=== PATIENT | female | born 1985 | race African-American/Black ===

== ENCOUNTER 2018-05-16 18:17 | Emergency (ER) | payer OTHER ==
[~2018-05-16] VITALS: Ht 167.6 cm; Wt 94.5 kg
[2018-05-16] MEDS ORDERED: PROZ20CA11 PO (18:23)
[2018-05-16] MEDS ORDERED: LIDOCAINE 2% MDV 20 ML VIAL SC ONE (19:15)
[2018-05-16 20:04] VITALS: BP 122/82
== END 2018-05-16 20:06 | disposition home or self-care (01) ==
LOC: M ED 18:17
DX: S01.81XA Laceration without foreign body of other part of head, initial encounter (principal); S01.511A Laceration without foreign body of lip, initial encounter; W00.9XXA Unspecified fall due to ice and snow, initial encounter; Y92.099 Unspecified place in other non-institutional residence as the place of occurrence of the external cause; Y93.9 Activity, unspecified; Y99.9 Unspecified external cause status; Z77.098 Contact with and (suspected) exposure to other hazardous, chiefly nonmedicinal, chemicals; Z79.899 Other long term (current) drug therapy; Z88.8 Allergy status to other drugs, medicaments and biological substances; Z91.89 Other specified personal risk factors, not elsewhere classified

== ENCOUNTER 2019-06-09 13:57 | Emergency (ER) | payer OTHER ==
[~2019-06-09] VITALS: Ht 167.6 cm; Wt 97.9 kg
[~2019-06-09 13:57] MED LIST: PROZ20CA11 PO
[2019-06-09 16:18] LABS: BASO % 0.5 % (0.0-1.0); EOS # 0.1 10^3/uL (0.0-0.5); EOS % 0.8 % (0.0-3.0); HEMATOCRIT 38.2 % (36.0-47.0); HEMOGLOBIN 12.6 g/dl (12.0-15.5); LYMPH # 3.7 10^3/uL (1.5-5.0); LYMPH % 47.6 % (24.0-44.0); MEAN CORPUSCULAR HEMOGLOBIN 29.4 pg (27.0-33.0); MEAN CORPUSCULAR VOLUME 89.3 fl (80.0-96.0); MONO # 0.5 10^3/uL (0.0-0.8); MONO % 6.8 % (0.0-5.0); NEUTROPHILS # 3.4 10^3/uL (1.5-8.5); PLATELET COUNT, AUTOMATED 374 10^3/uL (150-450); RED BLOOD COUNT 4.28 10^6/uL (4.00-5.40); WHITE BLOOD COUNT 7.8 10^3/uL (4.0-10.0)
[2019-06-09 16:41] LABS: HCG, SERUM QUALITATIVE NEGATIVE (NEGATIVE)
[2019-06-09 16:42] LABS: ALBUMIN 3.6 GM/DL (3.2-5.2); ALT/SGPT 16 U/L (12-78); AMYLASE 50 U/L (25-115); BILIRUBIN,DIRECT 0.1 MG/DL (0.0-0.2); BILIRUBIN,TOTAL 0.2 MG/DL (0.2-1.0); BLOOD UREA NITROGEN 9 MG/DL (7-18); CALCIUM LEVEL 9.1 MG/DL (8.5-10.1); CARBON DIOXIDE LEVEL 28 MEQ/L (21-32); CHLORIDE LEVEL 106 MEQ/L (98-107); CREATININE FOR GFR 0.75 MG/DL (0.55-1.30); GLOMERULAR FILTRATION RATE > 60.0 (>60); GLUCOSE, FASTING 89 MG/DL (70-100); POTASSIUM SERUM 4.5 MEQ/L (3.5-5.1); SODIUM LEVEL 138 MEQ/L (136-145); TOTAL PROTEIN 7.4 GM/DL (6.4-8.2)
[2019-06-09] MEDS ORDERED: SIMETHICONE 80 MG CHEW TAB PO ONE (17:15)
[2019-06-09] MEDS ORDERED: ACETAMINOPHEN TAB 650MG DOSE (2X325MG) PO ONE (17:15)
--- NOTE | 2019-06-09 18:10 | REPVR ---
PROCEDURE INFORMATION: Exam: US Abdomen Limited, Right Upper Quadrant Exam date and time: 06/09/2019 5:42 PM Age: 34 years old Clinical indication: Abdominal pain; Additional info: Biliary colic TECHNIQUE: Imaging protocol: Real-time ultrasound of the abdomen with image documentation. Examination was focused on the right upper quadrant. COMPARISON: No relevant prior studies available. FINDINGS: Pancreas is only partially imaged secondary to acoustic shadowing from bowel. Distal pancreatic body and pancreatic tail are not visualized. No obvious mass involving the pancreatic head. Liver demonstrates suggestion of a mass in the left lobe measuring 6.3 x 7.8 x 5.9 cm. Gallbladder is anechoic. No stone, mural edema or pericholecystic fluid. Common bile duct measures 2-3 mm in diameter. Right kidney measures 14 cm in long axis. Right kidney appears normal. No free fluid. IMPRESSION: No evidence of gallstones, cholecystitis or biliary obstruction. Concern for an ill-defined left hepatic mass roughly 6 x 8 x 6 cm in size Electronically signed by: Randy Zhang On 06/09/2019 18:09:59 PM
[2019-06-09] MEDS ORDERED: ISOVUE-370 76% 100ML VIAL (Q9967) As Ordered ONE (18:59)
[2019-06-09 19:29] VITALS: BP 122/80
--- NOTE | 2019-06-09 19:50 | REPVR ---
PROCEDURE INFORMATION: Exam: CT Abdomen Without And With Contrast, Liver Exam date and time: 06/09/2019 7:30 PM Age: 34 years old Clinical indication: Abnormal findings; Abnormal radiologic finding of the abdomen; Radiologic exam and body structure: US; Mass, lump, or swelling; Ruq; Additional info: Liver mass on US, ruq pain TECHNIQUE: Imaging protocol: Computed tomography images of the abdomen without and with intravenous contrast. Radiation optimization: All CT scans at this facility use at least one of these dose optimization techniques: automated exposure control; mA and/or kV adjustment per patient size (includes targeted exams where dose is matched to clinical indication); or iterative reconstruction. Contrast material: ISOVUE 370; Contrast volume: 100 ml; Contrast route: IV; COMPARISON: US Abdomen 06/09/2019 5:32 PM FINDINGS: Lungs: No suspicious mass or airspace process in the visualized lung bases. Liver: Left hepatic lobe demonstrates a 7 x 7 cm lesion that is hyperintense to hepatic parenchyma on the arterial phase and portal venous phase, with an area of central hypointensity suggesting a central scar. Delayed images show relative hypointensity compared to normal hepatic parenchyma.. Gallbladder and bile ducts: Gallbladder is present and shows no evidence of gallstone. Pancreas: Pancreas shows no obvious mass or adjacent fluid. Spleen: Spleen shows no obvious focal deformity. Adrenals: Adrenal glands are normal in appearance. Kidneys and ureters: Kidneys show no stone or hydronephrosis. Stomach and bowel: No evidence of small bowel obstruction. No evidence of small bowel obstruction. Intraperitoneal space: No pneumoperitoneum. No pneumoperitoneum. Lymph nodes: No enlarged lymph nodes. No enlarged lymph nodes. Vasculature: No aortic aneurysm. Bones/joints: Bony structures show no acute fracture or destructive process. Soft tissues: Fat containing umbilical hernia is present. Other findings: Limited evaluation without enteric or IV contrast. IMPRESSION: 7 x 7 cm left hepatic lobe mass with appearance highly suggestive of focal nodular hyperplasia, a benign lesion. The differential of fibrolamellar hepatocellular carcinoma is felt to be unlikely. Electronically signed by: Randy Zhang On 06/09/2019 19:49:55 PM
[2019-06-09] MEDS ORDERED: SIME180C PO (20:22)
[2019-06-09] MEDS ORDERED: ONDA4TAB6 PO (20:22)
--- NOTE | 2019-06-10 06:49 | ED PDOC ---
Post-Departure Follow-Up ft fuad alcantara faxed formal report of ct abd/p for fu Juna Veloz MD Jun 10, 2019 06:49
== END 2019-06-09 20:30 | disposition home or self-care (01) ==
LOC: M ED 13:57
DX: R16.0 Hepatomegaly, not elsewhere classified (principal); R10.11 Right upper quadrant pain; K91.0 Vomiting following gastrointestinal surgery; F32.9 Major depressive disorder, single episode, unspecified; Z79.899 Other long term (current) drug therapy; Z88.8 Allergy status to other drugs, medicaments and biological substances; Z91.89 Other specified personal risk factors, not elsewhere classified
CPT/HCPCS: 36415; 74170; 76705; 80048; 80076; 82150; 84703; 85025; 99284; Q9967

== ENCOUNTER → 2020-01-26 | Outpatient (CLI) | payer OTHER ==
[~2020-01-26] MED LIST changes: +ISOVUE-370 76% 100ML VIAL As Ordered ONE; +ONDA4TAB6 PO; +SIME180C PO
--- NOTE | 2020-01-26 18:15 | REP ---
INDICATION: ABCESS OF LIVER. COMPARISON: 06/09/2019 TECHNIQUE: Axial precontrast, contrast-enhanced, and delayed images of the abdomen using 100 cc Isovue 370 intravenous contrast material with coronal and sagittal reformations. This CT examination was performed using the following dose reduction techniques: Automated exposure control, adjustment of mA and/or kv according to the patient's size, and the use of iterative reconstruction technique. FINDINGS: Liver demonstrates 8.5 cm hyperenhancing lesion in left lobe with central scar that appears isodense on delayed images and most compatible with benign focal nodular hyperplasia. No further liver lesions are identified. Spleen, pancreas, gallbladder, bilateral adrenal glands and kidneys are normal. Visualized portions of the small and large bowel are normal. 1 cm periumbilical fat containing hernia noted. No ascites. No free air. No adenopathy. Visualized abdominal aorta and vasculature appear normal. Musculoskeletal structures are intact. Lung bases include stable 4 mm noncalcified nodule along the periphery of the left lower lobe (image 3). IMPRESSION: 1. Left hepatic mass has characteristics consistent with benign focal nodular hyperplasia. Less likely differential diagnosis would include rare fibrolamellar hepatocellular carcinoma. Nuclear medicine examination may be warranted for more definitive diagnosis. 2. Stable 4 mm left lower lobe pulmonary nodule. <Electronically signed by David Grimes > 01/26/20 [id number]
== END ==
LOC: M RAD 16:28
PROVIDERS: ATTEND Physician Assistant
DX: K75.0 Abscess of liver (principal)